=== PATIENT | female | born 2000 | race Caucasian/White ===

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

== ENCOUNTER 2019-05-07 20:13 | Emergency (ER) | payer SELFPAY ==
[~2019-05-07] VITALS: Ht 172.7 cm; Wt 96.9 kg
[~2019-05-07 20:13] MED LIST changes: +CEPH-443 PO; +IBUP-1542 PO; -PRENAT PO; +SULF1TAB31 PO
[2019-05-07 20:18] VITALS: Ht 172.7 cm; Wt 96.9 kg
== END 2019-05-07 21:38 | disposition home or self-care (01) ==
LOC: FTE 20:13
DX: L02.416 Cutaneous abscess of left lower limb (principal)

== ENCOUNTER 2019-05-12 16:47 | Emergency (ER) | payer SELFPAY ==
[~2019-05-12] VITALS: Ht 167.6 cm; Wt 96.5 kg
[2019-05-12 16:50] VITALS: BP 127/64; PULSE 68; RESP 18; Ht 167.6 cm; Wt 96.5 kg
== END 2019-05-12 17:22 | disposition home or self-care (01) ==
LOC: FTE 16:47
DX: Z48.00 Encounter for change or removal of nonsurgical wound dressing (principal)
CPT/HCPCS: 99281